=== PATIENT | male | born 1995 | race Caucasian/White ===

== ENCOUNTER 2018-01-12 11:13 | Emergency (ER) | payer MEDICAID, OTHER ==
[2018-01-12] MEDS: KETOROLAC 30 MG INJ IM (12:38)
== END 2018-01-12 13:24 | disposition home or self-care (01) ==
LOC: FTE 13:24
DX: S39.012A Strain of muscle, fascia and tendon of lower back, initial encounter (principal); X58.XXXA Exposure to other specified factors, initial encounter; Y92.89 Other specified places as the place of occurrence of the external cause
CPT/HCPCS: 72100; 96372; 99284-25